=== PATIENT | female | born 1990 | race Caucasian/White ===

== ENCOUNTER 2023-10-15 18:40 | Observation (INO) ==
[2023-10-15 19:04] LABS: ABS Basophils 0.1 10^3/uL (0.0-0.1); ABS Eosinophils 0.2 10^3/uL (0.0-0.5); ABS Lymphocytes 2.4 10^3/uL (1.0-4.8); ABS Monocytes 0.8 10^3/uL (0.0-0.9); ABS Neutrophils 11.5 10^3/uL (1.5-7.6); ABS Nucleated RBC 0.01 10^3/ul; Eosinophil % 1.4 %; Hematocrit 42.9 % (35-45); Hemoglobin 14.2 g/dL (11.5-14.3); Lymphocyte % 15.9 %; Mean Corpuscular Hemoglobin 29.3 pg (27-33); Mean Corpuscular Hgb Conc 33.1 g/dL (31-36); Mean Corpuscular Volume 88.5 fL (80-97); Mean Platelet Volume 7.5 fL (7.5-11.2); Nucleated Red Blood Cells % 0.1 %/100WBC (0.0-0.8); Platelet Count 429 10^3/uL (150-450); Red Blood Count 4.85 10^6/uL (3.63-4.92); Red Cell Distribution Width 13.5 % (12-17)
[2023-10-15 19:20] LABS: Albumin 4.5 g/dL (3.2-5.2); Albumin/Globulin Ratio 1.3 (1-3); Calcium 10.3 mg/dL (8.6-10.3); Creatinine, Serum 0.74 mg/dL (0.51-0.95); Globulin 3.5 g/dL (2-4); Total Bilirubin 0.6 mg/dL (0.2-1.0); eGFR CKD-EPI 108.1 (>60)
[2023-10-15 19:43] LABS: INR 1.03 (0.83-1.13)
[2023-10-15 20:30] LABS: Lipase 25 U/L (11.0-82.0)
[2023-10-15 20:38] LABS: High Sensitivity Troponin 1 Hr 5 pg/mL (<15)
[2023-10-15] MEDS ORDERED: Ondansetron 4 mg VIAL 2 MG/ML 2 ml VIAL IV PRN (21:46)
[2023-10-15] MEDS ORDERED: HYDROmorphone 0.5 MG/0.5 ML SYRINGE IV SLOW PU PRN (21:50)
[2023-10-15 22:12] LABS: Rapid COVID-19 Molecular Undetected (Undetected)
[2023-10-15] MEDS: Lactated Ringers 1000 ml BAG 1,000 ML IV SCH (22:16)
[2023-10-15] MEDS: Calcium Carb (TUMS) 500 mg CHEW TAB PO PRN (22:16)
[2023-10-15 22:30] LABS: Influenza A Molecular Negative (Negative); Influenza B Molecular Negative (Negative)
[2023-10-16] MEDS: Calcium Carb (TUMS) 500 mg CHEW TAB PO PRN (02:46)
[2023-10-16] MEDS: Lactated Ringers 1000 ml BAG 1,000 ML IV SCH (07:17)
[2023-10-16] MEDS ORDERED: Amoxicillin/Clavul 875/125 TAB (Augmentin 875 tab) PO SCH (09:00)
[2023-10-16 09:44] LABS: ABS Basophils 0.1 10^3/uL (0.0-0.1); ABS Eosinophils 0.1 10^3/uL (0.0-0.5); ABS Lymphocytes 1.7 10^3/uL (1.0-4.8); ABS Monocytes 0.5 10^3/uL (0.0-0.9); ABS Neutrophils 5.9 10^3/uL (1.5-7.6); ABS Nucleated RBC 0.01 10^3/ul; Eosinophil % 1.4 %; Hematocrit 38.2 % (35-45); Hemoglobin 12.9 g/dL (11.5-14.3); Lymphocyte % 20.6 %; Mean Corpuscular Hemoglobin 29.9 pg (27-33); Mean Corpuscular Hgb Conc 33.9 g/dL (31-36); Mean Corpuscular Volume 88.3 fL (80-97); Mean Platelet Volume 7.5 fL (7.5-11.2); Nucleated Red Blood Cells % 0.1 %/100WBC (0.0-0.8); Platelet Count 429 10^3/uL (150-450); Red Blood Count 4.32 10^6/uL (3.63-4.92); Red Cell Distribution Width 13.6 % (12-17); White Blood Count 8.4 10^3/uL (3.8-11.8)
[2023-10-16 10:04] VITALS: BP 136/87
[2023-10-16 10:10] LABS: Albumin 4.1 g/dL (3.2-5.2); Albumin/Globulin Ratio 1.3 (1-3); Calcium 9.6 mg/dL (8.6-10.3); Creatinine, Serum 0.7 mg/dL (0.51-0.95); Globulin 3.1 g/dL (2-4); Total Bilirubin 0.7 mg/dL (0.2-1.0); Total Protein 7.2 g/dL (6.4-8.9); eGFR CKD-EPI 115.6 (>60)
== END 2023-10-16 13:00 | disposition home or self-care (01) ==
LOC: ED 18:40 → EDHOLD 18:40 → MED 10-16 01:27
PROVIDERS: ADMIT Surgery; ATTEND Surgery